=== PATIENT | female | born 1970 | race Caucasian/White ===

== ENCOUNTER 2022-11-22 16:08 | Outpatient (CLI) | payer BC, SELFPAY ==
[2022-11-22 21:56] LABS: Albumin* 4.5 g/dL (3.3-5.0)
[2022-11-22 21:57] LABS: Chloride* 103 mmol/L (96-114); Potassium* 4.2 mmol/L (3.6-5.1); Sodium* 137 mmol/L (135-149)
[2022-11-22 21:59] LABS: Aspartate Amino Transferase* 41 U/L (12-35); Bilirubin Total* 0.6 mg/dL (0.1-1.5); Blood Urea Nitrogen* 9 mg/dL (7-30); Carbon Dioxide* 24 mmol/L (20-32); Cholesterol* 186 mg/dL (90-199); Creatinine* 0.6 mg/dL (0.5-1.5); Estimated Glomerular Filt Rate 109 ml/min; Glucose* 173 mg/dL (60-115); Total Protein* 7.6 g/dL (6.0-8.3)
[2022-11-22 22:00] LABS: Alanine Aminotransferase* 57 U/L (4-35); Alkaline Phosphatase* 153 U/L (40-150); Calcium* 9.8 mg/dL (8.4-10.6); HDL Cholesterol* 54 mg/dL (>=50); LDL Cholesterol Calculated 82 mg/dL (<100); Triglycerides* 251 mg/dL (40-149)
[2022-11-22 22:08] LABS: Creatinine Urine 37.8 mg/dL
[2022-11-22 22:10] LABS: Microalbumin Creatinine Ratio 20 mg/g (0-30); Microalbumin Urine < 1 mg/dL
== END 2022-11-22 16:09 | disposition home or self-care (01) ==
PROVIDERS: PCP Nurse Practitioner Family; Visit Provider Nurse Practitioner Family
DX: E11.9 Type 2 diabetes mellitus without complications (principal); R74.8 Abnormal levels of other serum enzymes
CPT/HCPCS: 80053; 80061; 82043; 82570; 84443

== ENCOUNTER 2024-02-21 04:44 | Outpatient (CLI) | payer BC, SELFPAY | END 2024-02-21 04:45 | disposition home or self-care (01) | PROVIDERS: PCP Nurse Practitioner Family; Visit Provider Nurse Practitioner Family | DX: E11.65 Type 2 diabetes mellitus with hyperglycemia (principal); Z79.84 Long term (current) use of oral hypoglycemic drugs; Z13.220 Encounter for screening for lipoid disorders; Z13.29 Encounter for screening for other suspected endocrine disorder | CPT/HCPCS: 80053; 80061; 82043; 82570; 84443 ==

== ENCOUNTER 2024-07-07 07:02 | Outpatient (CLI) | payer BC, SELFPAY ==
--- NOTE | 2024-07-07 07:15 | CRLHL7_ITS ---
For Patients: As a result of the Century Cures Act, medical imaging exams and procedure reports are released immediately into your electronic medical record. You may view this report before your referring provider. If you have questions, please contact your health care provider. INDICATION: ELEVATED LIVER ENZYMES COMPARISON: none TECHNIQUE: Real time diaz scale imaging and color Doppler analysis was performed of the right upper quadrant. FINDINGS: The liver measures 19.8 cm and has diffusely increased echotexture. No intrahepatic mass. There is a normal appearance of the hepatic IVC and proximal abdominal aorta. There is no evidence of ascites. The gallbladder is absent. The common bile duct is of normal size and measures 9 mm in diameter at the level of the ar hepatis. The pancreas appears normal. There is no evidence of a stone or hydronephrosis within the right kidney. The right kidney measures cm in length. IMPRESSION: Hepatomegaly and diffuse hepatic steatosis. Status post cholecystectomy without biliary obstruction. Dictated by Michael Worthington MD @ 07/07/2024 1:34:45 PM (Electronically Signed)
== END 2024-07-07 07:03 | disposition home or self-care (01) ==
LOC: US 07:03
PROVIDERS: PCP Nurse Practitioner Family; Visit Provider Nurse Practitioner Family
DX: R74.8 Abnormal levels of other serum enzymes (principal); K76.0 Fatty (change of) liver, not elsewhere classified
CPT/HCPCS: 76705

== ENCOUNTER 2025-04-23 09:05 | Outpatient (CLI) | payer BC, SELFPAY | END 2025-04-23 09:06 | disposition home or self-care (01) | PROVIDERS: PCP Nurse Practitioner Family; Visit Provider Nurse Practitioner Family | DX: E11.65 Type 2 diabetes mellitus with hyperglycemia (principal); Z79.84 Long term (current) use of oral hypoglycemic drugs; Z79.85 Long-term (current) use of injectable non-insulin antidiabetic drugs; Z13.21 Encounter for screening for nutritional disorder | CPT/HCPCS: 80053; 80061; 82043; 82570; 82607; 84443 ==